=== PATIENT | male | born 1995 | race African-American/Black ===

== ENCOUNTER 2017-03-05 00:24 | Emergency (ER) | payer BC, OTHER ==
[~2017-03-05] VITALS: Ht 170.2 cm; Wt 72.6 kg
[2017-03-05] MEDS ORDERED: NORCO 5-325 TA1 EACH PO (02:08)
[2017-03-05 02:10] VITALS: BP 127/85
== END 2017-03-05 02:15 | disposition home or self-care (01) ==
LOC: ER 00:24
DX: H20.9 Unspecified iridocyclitis (principal); F10.99 Alcohol use, unspecified with unspecified alcohol-induced disorder

== ENCOUNTER 2018-05-04 23:41 | Emergency (ER) | payer BC, OTHER ==
[~2018-05-04] VITALS: Ht 170.2 cm; Wt 90.7 kg
--- NOTE | ~2018-05-04 | EKG ---
[address] [address] ELECTROCARDIOGRAM REPORT Name: VALE NIX [facility] [id number] Admission: 05/04/18 Attend Phys: Discharge: 05/05/18 Date of : [birth year] Report #: [id number] THIS REPORT FOR: //name// [facility] ED Test Date: 2018-05-04 Test Time: 23:46:11 Pat Name: VALE NIX Department: Room: Gender: Scale Tester: LYUBOV : 1995 Requested By: Khalif Leon Order Number: [id number] MD: Zak Méndez Measurements Intervals [place] Rate: 62 P: 55 TN: 164 QRS: 46 QRSD: 91 T: 34 QT: 400 QTc: 407 Interpretive Statements Sinus rhythm Normal tracing No previous ECG available for comparison Electronically Signed On 05-05-2018 9:03:23 CDT by Zak Méndez [email or web address] <ELECTRONICALLY SIGNED> By: Zak Méndez MD, [facility] 05/05/18 [id number] Zak Méndez MD, FAC /EPI
[~2018-05-04 23:41] MED LIST: NORCO 5-325 TA1 EACH PO
[2018-05-05] MEDS ORDERED: NOHOMEMEDICATIONS (00:22)
[2018-05-05] MEDS ORDERED: PEPCID20 MG PO (01:22)
[2018-05-05 01:55] VITALS: BP 132/68
== END 2018-05-05 01:56 | disposition home or self-care (01) ==
LOC: ER 23:41
DX: K21.9 Gastro-esophageal reflux disease without esophagitis (principal)

== ENCOUNTER 2019-06-15 23:54 | Emergency (ER) | payer BC, OTHER ==
[~2019-06-15] VITALS: Ht 170.2 cm; Wt 90.7 kg
[~2019-06-15 23:54] MED LIST changes: +NOHOMEMEDICATIONS; +PEPCID20 MG PO
[2019-06-16 00:26] LABS: URINE BILIRUBIN NEGATIVE (Negative); URINE BLOOD 1+ (Negative); URINE CLARITY CLOUDY; URINE COLOR YELLOW; URINE GLUCOSE-RANDOM* NEGATIVE (Negative); URINE KETONES NEGATIVE (Negative); URINE NITRITE-REFLEX NEGATIVE (Negative); URINE PROTEIN (DIPSTICK) 1+ (Negative); URINE SPECIFIC GRAVITY 1.015 (1.005-1.035)
[2019-06-16 00:29] LABS: URINE LEUKOCYTES-REFLEX 3+ (Negative)
[2019-06-16 00:43] LABS: SQUAMOUS 0-3 Few /LPF (0-3); URINE RBC 3-10 Few /HPF (0-2); URINE WBC-REFLEX >25 Many /HPF (0-5); WBC CLUMPS Packed (None Seen)
[2019-06-16 00:44] LABS: BACTERIA-REFLEX 1-9 Few /HPF (None Seen); CRYSTALS None Seen /LPF (None Seen); MUCUS 0-3 Light strn/LPF (None Seen)
[2019-06-16 01:53] VITALS: BP 129/85
== END 2019-06-16 01:56 | disposition home or self-care (01) ==
LOC: ER 23:54
PROVIDERS: Emergency Medicine
DX: N34.2 Other urethritis (principal)